=== PATIENT | male | born 2000 | race Caucasian/White ===

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

== ENCOUNTER 2021-01-29 08:01 | Emergency (ER) | payer OTHER ==
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
[2021-01-29 08:51] LABS: Absolute Lymphocytes (CBC) 2.3 K/uL (0.7-4.9); Hematocrit 45.6 % (39.6-49.0); Lymphocytes % 36.6 % (15.3-44.8); MPV 9.5 fL (7.6-11.3); RBC Red Blood Cell Count 4.89 M/uL (4.33-5.43)
[2021-01-29 09:07] LABS: Potassium 3.3 mmol/L (3.5-5.1)
[2021-01-29] MEDS ORDERED: IBUPROFEN 400 MG TAB ONE (09:16)
[2021-01-29] MEDS ORDERED: ACETAMINOPHEN 325 MG TABLET ONE (09:16)
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
[2021-01-29] MEDS ORDERED: POTASSIUM 25 MEQ EFFERV TAB ONE (09:28)
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
[2021-01-29 10:07] VITALS: TEMP 98.2
[2021-01-29 10:08] VITALS: BP 121/72; O2SAT 99
== END 2021-01-29 09:58 | disposition home or self-care (01) ==
LOC: ER 08:01
DX: S00.03XA Contusion of scalp, initial encounter (principal); S80.11XA Contusion of right lower leg, initial encounter; V49.49XA Driver injured in collision with other motor vehicles in traffic accident, initial encounter
CPT/HCPCS: 36415; 70450; 72125; 80048; 85025; 86850; 86900; 86901; 99284